=== PATIENT | female | born 1970 | race African-American/Black ===

== ENCOUNTER 2018-07-14 17:39 | Inpatient (IN) | payer OTHER, MEDICAID ==
[~2018-07-14] VITALS: Ht 182.9 cm; Wt 83.9 kg
[2018-07-14] MEDS ORDERED: SODIUM CHLORIDE 0.9% 250 ML IV ONE (18:27)
[2018-07-14] MEDS ORDERED: CLOPIDOGREL 75MG TABLET PO ONE (18:30)
[2018-07-14 19:04] LABS: EOSINOPHILS % 0.9 % (0.0-5.0); HEMOGLOBIN. 12.6 g/dL (12.0-16.0); LYMPHOCYTES % 10.6 % (20.0-50.0); MEAN CORPUSCULAR HEMOGLOBIN 31.1 pg (28.0-32.0); MEAN CORPUSCULAR VOLUME 96.5 fL (81.0-99.0); MEAN PLATELET VOLUME 8.7 fl (7.4-10.4); MONOCYTES % 7.4 % (2.0-8.0); NEUTROPHILS % 80.1 % (40.0-76.0); PLATELET 228 x1000/uL (130-400); RED BLOOD CELL COUNT 4.04 mill/uL (4.2-5.4); RED CELL DISTRIBUTION WIDTH 17.6 % (11.6-14.6)
[2018-07-14 19:08] LABS: CHLORIDE 94 mEq/L (98-107)
[2018-07-14 19:13] LABS: D-DIMER 2.98 mg/L FEU (<0.50); INR 1.6; PARTIAL THROMBOPLASTIN TIME 34.5 sec (23.4-31.0); PROTHROMBIN TIME 16.2 sec (9.1-11.1)
[2018-07-14 20:04] LABS: HCG SCREEN NEGATIVE
[2018-07-14] MEDS ORDERED: IOHEXOL-350 100 ML BOTTLE ONE (22:05)
[2018-07-14] MEDS ORDERED: LEVOFLOXACIN 750MG PREMIX 150 ML IV ONE (22:15)
[2018-07-14] MEDS ORDERED: HEPARIN 5000 UNITS/ML VIAL IV ONE (22:15)
[2018-07-14] MEDS ORDERED: HEPARIN 25,000 UNITS PREMIX 500 ML IV SCH ×2 (22:15→22:30)
[2018-07-14] MEDS ORDERED: ACETAMINOPHEN 325MG TABLET PO ONE (22:45)
[2018-07-15] VITALS (12 sets, daily range): BP systolic 84–96; BP diastolic 54–72
[2018-07-15] MEDS ORDERED: ONDANSETRON HCL 4MG/2ML INJ IV PRN (00:30)
[2018-07-15] MEDS ORDERED: DOCUSATE SODIUM 100MG CAPSULE PO PRN (00:30)
[2018-07-15] MEDS ORDERED: CLONIDINE 0.1MG TABLET PO PRN (00:30)
[2018-07-15] MEDS ORDERED: IPRATROPIUM/ALBUTEROL 0.5-3(2.5)MG/3ML NEB INH PRN (00:30)
[2018-07-15] MEDS: ACETAMINOPHEN 325MG TABLET PO PRN ×2 (03:14→11:10)
[2018-07-15] MEDS ORDERED: DEXTROSE 50% WATER 50ML SYRINGE IV PRN (03:30)
[2018-07-15 04:05] LABS: PHOSPHORUS 2.6 mg/dL (2.5-4.9)
[2018-07-15 04:13] LABS: BASOPHILS % 0.1 % (0.0-2.0); EOSINOPHILS % 0.5 % (0.0-5.0); HEMATOCRIT. 34.1 % (36.0-48.0); LYMPHOCYTES % 11.8 % (20.0-50.0); MEAN CORPUSCULAR HEMOGLOBIN 30.9 pg (28.0-32.0); MEAN CORPUSCULAR VOLUME 95.7 fL (81.0-99.0); MEAN PLATELET VOLUME 8.5 fl (7.4-10.4); NEUTROPHILS % 76.6 % (40.0-76.0); PLATELET 209 x1000/uL (130-400); RED BLOOD CELL COUNT 3.56 mill/uL (4.2-5.4); RED CELL DISTRIBUTION WIDTH 16.9 % (11.6-14.6)
[2018-07-15] MEDS ORDERED: HEPARIN BOLUS PRN aPTT <36 IV (05:15)
[2018-07-15] MEDS ORDERED: HEPARIN BOLUS PRN aPTT 37-44 IV (05:15)
[2018-07-15] MEDS ORDERED: HEPARIN 25,000 UNITS PREMIX 500 ML IV SCH (05:15)
[2018-07-15] MEDS: BLOOD SUGAR DIAGNOSTIC STRIP TEST SCH ×4 (06:11→21:00)
[2018-07-15] MEDS: INSULIN LISPRO 100 UNITS/ML SUBCUT SCH ×4 (07:08→21:00)
[2018-07-15] MEDS: FLUOXETINE HCL 10 MG CAPSULE PO SCH (08:54)
[2018-07-15] MEDS: FOLIC ACID/VITAMIN B COMP W-C TABLET PO SCH (08:54)
[2018-07-15] MEDS: AMIODARONE HCL 200 MG TABLET PO SCH (08:54)
[2018-07-15] MEDS: FLUTICASONE PROPIONATE 50MCG/SPRAY BOTTLE BOTHNSTRLS SCH (08:55)
[2018-07-15] MEDS ORDERED: MIDODRINE HCL 5MG TABLET PO SCH (09:00)
[2018-07-15] MEDS: DIPHENHYDRAMINE 50MG/ML VIAL IV PRN ×2 (10:35→20:16)
[2018-07-15] MEDS ORDERED: LIDOCAINE HCL/EPINEPHRINE 1%-EPI 1:100,000 20 ML VIAL INFIL NR (11:00)
[2018-07-15 12:51] LABS: CREATINE KINASE MB FRACTION 1.4 ng/mL (0.5-3.6)
[2018-07-15] MEDS: MIDODRINE HCL 10 MG TABLET PO SCH ×2 (13:33→17:29)
[2018-07-15] MEDS: HYDROCODONE/ACETAMINOPHEN 5/325MG TABLET PO PRN (15:21)
[2018-07-15] MEDS ORDERED: HEPARIN SODIUM 1,000 UNIT/1ML VIAL IV NR (16:30)
[2018-07-15] MEDS ORDERED: ATORVASTATIN CALCIUM 40MG TABLET PO SCH (21:00)
[2018-07-15] MEDS: DOCUSATE SODIUM 250MG CAPSULE PO SCH (21:02)
[2018-07-15] MEDS: ATORVASTATIN CALCIUM 20MG TABLET PO SCH (21:02)
[2018-07-15] MEDS: FAMOTIDINE 20MG TABLET PO SCH (21:02)
[2018-07-16] VITALS (14 sets, daily range): BP systolic 86–129; BP diastolic 35–82
[2018-07-16] MEDS: BLOOD SUGAR DIAGNOSTIC STRIP TEST SCH (06:40)
[2018-07-16] MEDS: INSULIN LISPRO 100 UNITS/ML SUBCUT SCH (07:20)
[2018-07-16 08:07] LABS: BASOPHILS % 1.1 % (0.0-2.0); EOSINOPHILS % 0.9 % (0.0-5.0); HEMOGLOBIN. 11.7 g/dL (12.0-16.0); MEAN CORPUSCULAR HEMOGLOBIN 31.1 pg (28.0-32.0); MEAN CORPUSCULAR VOLUME 95.8 fL (81.0-99.0); MEAN PLATELET VOLUME 8.7 fl (7.4-10.4); MONOCYTES % 11.6 % (2.0-8.0); NEUTROPHILS % 76.4 % (40.0-76.0); PLATELET 203 x1000/uL (130-400); RED BLOOD CELL COUNT 3.75 mill/uL (4.2-5.4); RED CELL DISTRIBUTION WIDTH 17.2 % (11.6-14.6)
[2018-07-16 08:40] LABS: CHLORIDE 95 mEq/L (98-107)
[2018-07-16 08:53] LABS: PHOSPHORUS 3.5 mg/dL (2.5-4.9)
[2018-07-16 08:56] LABS: CREATINE KINASE 21 IU/L (26-192)
[2018-07-16 08:58] LABS: CREATINE KINASE MB FRACTION < 1.0 ng/mL (0.5-3.6)
[2018-07-16] MEDS: FLUOXETINE HCL 10 MG CAPSULE PO SCH (09:00)
[2018-07-16] MEDS: FOLIC ACID/VITAMIN B COMP W-C TABLET PO SCH (09:13)
[2018-07-16] MEDS: AMIODARONE HCL 200 MG TABLET PO SCH (09:13)
[2018-07-16] MEDS: FLUTICASONE PROPIONATE 50MCG/SPRAY BOTTLE BOTHNSTRLS SCH (09:13)
[2018-07-16] MEDS: MIDODRINE HCL 10 MG TABLET PO SCH ×3 (09:13→17:00)
[2018-07-16] MEDS: HYDROCODONE/ACETAMINOPHEN 5/325MG TABLET PO PRN ×2 (09:34→17:00)
[2018-07-16] MEDS ORDERED: ENOXAPARIN 80MG/0.8ML SYR SUBCUT SCH (16:00)
[2018-07-16] MEDS ORDERED: HEPARIN SODIUM 1,000 UNIT/1ML VIAL IV SCH (16:30)
[2018-07-16] MEDS: FAMOTIDINE 20MG TABLET PO SCH (21:08)
[2018-07-16] MEDS: ATORVASTATIN CALCIUM 20MG TABLET PO SCH (21:08)
[2018-07-16] MEDS: DOCUSATE SODIUM 250MG CAPSULE PO SCH (21:08)
[2018-07-16] MEDS: ACETAMINOPHEN 325MG TABLET PO PRN (21:29)
== END 2018-07-16 22:56 | disposition short-term general hospital (02) | DRG 981 ==
LOC: ER 18:08 → 3WST 22:06 → EDBEDREQ 22:11 → EDBEDREQTM 22:11 → ENRESERV 22:27
PROVIDERS: ADMIT Internal Medicine; ATTEND Internal Medicine
PROC: 0KBP0ZZ Excision of Left Hip Muscle, Open Approach (ICD-10-PCS; principal; 2018-07-15)
PROC: 5A1D70Z Performance of Urinary Filtration, Intermittent, Less than 6 Hours Per Day (ICD-10-PCS; 2018-07-15)
PROC: 5A1D70Z Performance of Urinary Filtration, Intermittent, Less than 6 Hours Per Day (ICD-10-PCS; 2018-07-16)
DX: I26.99 Other pulmonary embolism without acute cor pulmonale (principal); L89.224 Pressure ulcer of left hip, stage 4; N18.6 End stage renal disease; I82.411 Acute embolism and thrombosis of right femoral vein; E44.0 Moderate protein-calorie malnutrition; D68.59 Other primary thrombophilia; I13.2 Hypertensive heart and chronic kidney disease with heart failure and with stage 5 chronic kidney disease, or end stage renal disease; I42.0 Dilated cardiomyopathy; I50.22 Chronic systolic (congestive) heart failure; I69.351 Hemiplegia and hemiparesis following cerebral infarction affecting right dominant side; J98.11 Atelectasis; R18.8 Other ascites; Z99.2 Dependence on renal dialysis; Z95.810 Presence of automatic (implantable) cardiac defibrillator; E11.22 Type 2 diabetes mellitus with diabetic chronic kidney disease; I27.20 Pulmonary hypertension, unspecified; E11.621 Type 2 diabetes mellitus with foot ulcer; D63.1 Anemia in chronic kidney disease; E78.5 Hyperlipidemia, unspecified; E11.42 Type 2 diabetes mellitus with diabetic polyneuropathy; I45.4 Nonspecific intraventricular block; I95.3 Hypotension of hemodialysis; I95.89 Other hypotension; K74.60 Unspecified cirrhosis of liver; L29.9 Pruritus, unspecified; L97.519 Non-pressure chronic ulcer of other part of right foot with unspecified severity; L97.529 Non-pressure chronic ulcer of other part of left foot with unspecified severity; Z74.01 Bed confinement status; Z74.1 Need for assistance with personal care; Z79.01 Long term (current) use of anticoagulants; Z79.84 Long term (current) use of oral hypoglycemic drugs; Z82.41 Family history of sudden cardiac death; Z86.718 Personal history of other venous thrombosis and embolism; Z88.6 Allergy status to analgesic agent; Z68.25 Body mass index [BMI] 25.0-25.9, adult
CPT/HCPCS: 36415; 71045; 71275; 73630; 80048; 80053; 80061; 82550; 82553; 82962; 83605; 83735; 83880; 84100; 84134; 84443; 84484; 84703; 85025; 85379; 85610; 85730; 87040; 87070; 87075; 87205; 93005; 93306; 93923; 93970; 96365; 96368; 99291; J1200; J1644; J1650; J1956; J3490; J7030; J7050; Q9967